=== PATIENT | male | born 1970 | race Caucasian/White ===

== ENCOUNTER 2020-05-08 20:00 | Outpatient (REF) | payer SELFPAY ==
[2020-05-08 19:36] LABS: ALT 27 U/L (16-63); AST 16 U/L (15-37); Alkaline Phosphatase 75 U/L (46-116); Anion Gap 8.5 mmol/L (3-11); BUN 13 mg/dL (7-18); Bilirubin, Total 0.5 mg/dL (0.2-1.0); CO2 26.5 mmol/L (21.0-32.0); CREATININE 0.84 mg/dL (0.70-1.30); Calcium 8.4 mg/dL (8.5-10.1); Calculated LDL 75 mg/dL (<100); Chloride 106 mmol/L (98-107); Cholesterol 114 mg/dL (<200); Glucose 111 mg/dL (74-106); HDL Cholesterol 26 mg/dL (40-60); Sodium 141 mmol/L (136-145); Total Protein 6.7 g/dL (6.4-8.2); Triglyceride 67 mg/dL (<150)
[2020-05-13 11:18] LABS: Testosterone, Total 118 ng/dL (240-950)
== END 2020-05-08 20:20 ==
LOC: NCHCN 20:00
PROVIDERS: PCP Physician Assistant; Visit Provider Physician Assistant
DX: E29.1 Testicular hypofunction (principal); Z00.00 Encounter for general adult medical examination without abnormal findings; E78.5 Hyperlipidemia, unspecified; R03.0 Elevated blood-pressure reading, without diagnosis of hypertension
CPT/HCPCS: 80053; 80061; 84403

== ENCOUNTER 2020-11-12 09:39 | Outpatient (REF) | payer OTHER, SELFPAY ==
[2020-11-15 17:33] LABS: Testosterone, Total 147 ng/dL (240-950)
== END 2020-11-12 09:40 | disposition home or self-care (01) ==
LOC: NCHCN 09:39
PROVIDERS: PCP Physician Assistant; Visit Provider Physician Assistant
DX: E29.1 Testicular hypofunction (principal)
CPT/HCPCS: 84403

== ENCOUNTER 2021-05-07 09:21 | Outpatient (REF) | payer OTHER, SELFPAY ==
[2021-05-07 20:36] LABS: ALT 30 U/L (16-63); AST 15 U/L (15-37); Albumin 4.1 g/dL (3.4-5.0); Alkaline Phosphatase 88 U/L (46-116); Anion Gap 8.7 mmol/L (3-11); BUN 11 mg/dL (7-18); Bilirubin, Total 0.7 mg/dL (0.2-1.0); CO2 26.3 mmol/L (21.0-32.0); CREATININE 0.7 mg/dL (0.70-1.30); Calcium 8.5 mg/dL (8.5-10.1); Calculated LDL 70 mg/dL (<100); Chloride 104 mmol/L (98-107); Cholesterol 106 mg/dL (<200); Glucose 105 mg/dL (74-106); HDL Cholesterol 26 mg/dL (40-60); Potassium 3.9 mmol/L (3.5-5.1); Sodium 139 mmol/L (136-145); Total Protein 6.8 g/dL (6.4-8.2); Triglyceride 54 mg/dL (<150)
[2021-05-09 17:37] LABS: PSA, Screening 0.6 ng/mL (0.0-2.5)
[2021-05-12 11:33] LABS: Testosterone, Total 543 ng/dL (240-950)
== END 2021-05-07 09:22 | disposition home or self-care (01) ==
LOC: NCHCN 09:21
PROVIDERS: PCP Physician Assistant; Visit Provider Physician Assistant
DX: E29.1 Testicular hypofunction (principal); I10 Essential (primary) hypertension; Z12.5 Encounter for screening for malignant neoplasm of prostate; E78.5 Hyperlipidemia, unspecified
CPT/HCPCS: 80053; 80061; 84153; 84403

== ENCOUNTER 2022-04-10 00:01 | Emergency (ER) | payer OTHER, SELFPAY ==
[2022-04-10] VITALS (42 sets, daily range): BP systolic 118–148; BP diastolic 74–85; PULSE 54–73; RESP 14–24; TEMP 37; O2SAT 92–98
--- NOTE | 2022-04-10 | RT.EKG_ITS ---
APPROVED REPORT Exam: Resting ECG Reason for Exam: Chest Pain Patient Location: E HR:66 bpm ECG Measurements Heart Rate 66 AXIS OR 193 P 62 QRSd 101 QRS -7 QT 395 T 46 QTc 414 Conclusion Sinus rhythm...normal P axis, V-rate 60- 99
--- NOTE | 2022-04-10 00:15 | DI.RAD_ITS ---
Exam(s) XR PORTABLE CHEST AP EXAM: XR PORTABLE CHEST AP CLINICAL HISTORY: chest pain TECHNIQUE: 2D digital imaging was performed of the chest. One image was obtained. An AP view was ob tained. COMPARISON: No exams were available for comparison FINDINGS: MEDIASTINUM: Normal. HEART: Normal. PULMONARY VASCULATURE: Normal. LUNGS: Clear. PLEURAL SPACE: No pleural effusion or pneumothorax. BONE:Within normal limits for the patient's age. OTHER FINDINGS:Normal. IMPRESSION: No acute pulmonary findings. DATA REPOSITORY: RADIATION DOSE DELIVERED:
--- NOTE | 2022-04-10 00:19 | ED.GENADUL_ITS ---
Discharge Plan Disposition Patient Disposition: HOME Condition: Stable Discharge Details Clinical Impression: Light-headed Primary Care Provider: Silvano Bolivar ED Provider: Mickey Gallo Home Meds and New Rx's Prescriptions: New lorazepam 1 mg tablet 1 mg PO TID PRN (Reason: anxiety) Qty: 10 0RF Continued atorvastatin [Lipitor] 40 mg Tablet 40 mg PO amlodipine 5 mg Tablet 5 mg pantoprazole [Protonix] 40 mg Tablet,Delayed Release (Dr/Ec) 40 mg PO Discharge Instructions Additional Instructions: your blood work, ekg and xray did not show concerning findings at this time follow up with your primary care provider within 1 week if you feel more ill, have severe worsening pain or difficulty breathing return to the emergency department Medical Decision Making 51yo male with hx of htn, hld, who comes in with cc of waking up feeling lightheaded and pain throughout his body. He states the past week he has had similar symptoms where he wakes up feeling lightheaded but tonight he had pain throughout the body. He denies any fevers, chills, n/v. He states he felt like he was going to lose consciousness during this episode tonight. He arrives with a normal gait, caox4 with clear speech. He states he no longer has pain though still feels lightheaded, is sinus on the monitor with stable vitals. He has clear lungs, no murmurs, soft nontender abdomen. No leg swelling or calf tenderness. He is not having any chest pain or upper back pain. Unclear etiology for his symptoms, he is sinus and still feels lightheaded so unlikely arrythmia. He has no dizziness, normal gait and on neuro exam has CN II-XII that are intact, no focal motor or sensation deficits, nih of 0 and reassuring hints exam so doubt cva. Given the symptoms will obtain troponin, check for anemia and electrolyte abnormalities and reassess. No tearing back pain to suggest dissection and no hypoxia, tachycardia or evidence of dvt on exam so doubt pe. pt stable, labs and xray unremarkable and he feels improved, stable vitals. Will obtain delta troponin pt resting comfortable in bed still in sinus and stable vitals, no symptoms now and delta troponin negative. Pt does voice that he has had some feelins of anxiety when he has these episodes and is wondering if anxiety could be contributing. Discussed can't determine definitely based on the history but it is a possibility. He would like to have something as needed if he does feel anxious, will provide short course of ativan to use as needed. HE has f/u next week with his pcp, return precautions given Differential Diagnosis Differential Diagnosis: nstemi, afib, electrolyte abnormality Imaging Data Radiologic Study: Attestation: I personally reviewed and interpreted this imaging study as follows: Imaging: X-Ray Radiologist's impression: no acute findings Lab Data Lab results reviewed: Yes I reviewed the patient's lab results. ECG Data Attestation: I personally reviewed and interpreted this ECG (s) as follows: Prior ECG tracings: not available for review Interpretation: sinus rhythm, rate of 66, no acute st t wave ischemic findings HPI General Mode of arrival: ambulatory . Date/Time Provider Initiated Documentation: 04/10/22 00:03 . Limitations to Documentation: no limitations . Information obtained by: patient . History of Present Illness 51 year old M presents to the emergency department with the chief complaint of lightheaded, described as moderate, Patient started experiencing this hour(s) (1) and it has been constant. No relieving factors improve symptom(s), No exacerbating factors reported . Patient notes chest pain; denies fever/chills. Patient did receive the following treatments prior to arrival, none Related Data Home Medications Medication Instructions Recorded Confirmed amlodipine 5 mg tablet 5 mg 04/10/22 atorvastatin 40 mg tablet (Lipitor) 40 mg PO 04/10/22 lorazepam 1 mg tablet 1 mg PO TID PRN anxiety #10 tabs 04/10/22 pantoprazole 40 mg tablet,delayed 40 mg PO 04/10/22 release (Protonix) Previous Rx's Medication Instructions Recorded lorazepam 1 mg tablet 1 mg PO TID PRN anxiety #10 tabs 04/10/22 Allergies Allergy/AdvReac Type Severity Reaction Status Date / Time No Known Allergies Allergy Unverified 04/10/22 01:23 General Stated Complaint: GenMedical HAL: 2 Review of Systems All systems reviewed & are unremarkable except as noted in HPI and below Constitutional Constitutional: Denies chills, Denies fever(s) and Denies weakness Cardiovascular Cardiovascular: Denies dyspnea Respiratory Respiratory: Denies cough and Denies dyspnea Gastrointestinal Gastrointestinal: Denies abdominal pain, Denies nausea and Denies vomiting Integumentary/Breasts Skin/Breast: Denies rash Neurologic Neurologic: Denies weakness Allergic/Immunologic Allergic/Immunologic: Denies urticaria PFSH All Active Problems (Updated 04/10/22 @ 01:53 by Mickey Gallo MD) Light-headed (Acute) Social History Smoking/Tobacco Use Status: Never Smoking risk assessment performed?: Yes Alcohol Intake: never Drug use: Never Do you feel safe at home: Yes Do you feel safe in your relationship?: Yes Exam Const General: no acute distress Orientation: alert HENMT Head: normal to inspection Ears: external ears normal General nose exam: external nose normal Mouth: moist mucous membranes Eyes General: appearance normal, both eyes and all related structures Neck Neck: normal visual inspection Resp Effort & Inspection: normal respiratory effort and able to speak in complete sentences Cardio Rate: regular rate GI Palpation: soft and nontender Skin General skin exam: no rashes or lesions noted Neuro General: patient alert and patient oriented x3 Extrem General: normal to inspection Psych Mental Status: mental status grossly normal Course Vital Signs Vital signs: Vital Signs Pulse Oximetry 97 04/10/22 00:05 Temperature 37.0 C 04/10/22 00:07 Temperature Source Tympanic 04/10/22 00:07 Pulse 73 04/10/22 00:07 Pulse 71 04/10/22 00:10 Respiratory Rate 22 04/10/22 00:10 Respiratory Effort 04/10/22 00:13 Respiratory Depth Normal 04/10/22 00:13 Respiratory Pattern Normal 04/10/22 00:13 Blood Pressure 148/81 H 04/10/22 00:07 Blood Pressure Mean 98 04/10/22 00:07 Blood Pressure Position Supine 04/10/22 00:07 Pulse Oximetry 96 04/10/22 00:10 Oxygen Delivery Method Room Air 04/10/22 00:07 Oxygen Flow Rate 0 04/10/22 00:07 Pain Level 0 04/10/22 00:07
[2022-04-10] MEDS: Normal Saline 1,000 ML 1000 ML IV (00:22)
[2022-04-10 00:35] LABS: Abs Immature Grans 0.02 10^3/uL (0.0-0.06); Absolute Basophil Count 0.07 10^3/uL (0.0-0.2); Absolute Eosinophil Count 0.22 10^3/uL (0.0-0.7); Absolute Lymphocyte Count 2.92 10^3/uL (1.2-3.4); Absolute Monocyte Count 0.91 10^3/uL (0.1-0.8); Absolute Neutrophil Count 6.24 10^3/uL (1.2-6.7); Basophils % 0.7; Eosinophils % 2.1; HCT 45.5 % (40.0-50.0); HGB 15.9 g/dL (13.5-17.5); Immature Grans % 0.2; Lymphocytes % 28.1; MCH 29.7 pg (27.0-33.0); MCHC 34.9 % (32.0-36.0); MCV 85 fL (80-95); MPV 8.8 fL (8.0-11.0); Monocytes % 8.8; Neutrophils % 60.1; Platelet Count 262 10^3/uL (130-400); RBC 5.36 10^6/uL (4.36-5.78); RDW 12.4 % (11.8-14.1); RDW-SD 38.1 fL; WBC 10.38 10^3/uL (4.4-10.8)
[2022-04-10 00:42] LABS: ALT 32 U/L (16-63); AST 16 U/L (15-37); Albumin 4.1 g/dL (3.4-5.0); Alkaline Phosphatase 79 U/L (46-116); Anion Gap 4.9 mmol/L (3-11); BUN 16 mg/dL (7-18); Bilirubin, Total 0.6 mg/dL (0.2-1.0); CO2 28.1 mmol/L (21.0-32.0); CREATININE 0.9 mg/dL (0.70-1.30); Calcium 8.7 mg/dL (8.5-10.1); Chloride 106 mmol/L (98-107); Estimated GFR 104.05 (mL/min/1.73m2); Glucose 108 mg/dL (74-106); Magnesium 1.9 mg/dL (1.8-2.4); Potassium 3.7 mmol/L (3.5-5.1); Sodium 139 mmol/L (136-145); Total Protein 7.1 g/dL (6.4-8.2); Troponin I < 50 ng/L (<or=60)
--- NOTE | 2022-04-10 00:57 | DI.VRAD_ITS ---
PROCEDURE INFORMATION: Exam: XR Chest Exam date and time: 04/10/2022 12:20 AM Age: 51 years old Clinical indication: Other: Chest pain TECHNIQUE: Imaging protocol: Radiologic exam of the chest. Views: 1 view. COMPARISON: No relevant prior studies available. FINDINGS: Lungs: Mild chronic interstitial prominence. No consolidation. Pleural spaces: No pleural effusion. No pneumothorax. Heart/Mediastinum: Mildly tortuous aorta. No cardiomegaly. Bones/joints: Unremarkable. IMPRESSION: No acute findings. Dictated and Authenticated by: Nic Tate MD. Ordering:LORIN Arevalo MD
[2022-04-10] MEDS: Normal Saline Flush 10 ML SYR (03:12)
[2022-04-10 03:30] LABS: Troponin I < 50 ng/L (<or=60)
== END 2022-04-10 16:35 | disposition home or self-care (01) ==
LOC: ER 04:34
PROVIDERS: Emergency Provider Emergency Medicine; PCP Physician Assistant
DX: R42 Dizziness and giddiness (principal)
CPT/HCPCS: 80053; 93005; 96360; 99284; 71045; 83735; 84484; 85025; 93010

== ENCOUNTER 2022-05-04 18:39 | Outpatient (REF) | payer OTHER, SELFPAY ==
[2022-05-04 20:13] LABS: ALT 35 U/L (16-63); AST 18 U/L (15-37); Albumin 4.3 g/dL (3.4-5.0); Alkaline Phosphatase 93 U/L (46-116); BUN 12 mg/dL (7-18); Bilirubin, Total 0.6 mg/dL (0.2-1.0); CREATININE 0.9 mg/dL (0.70-1.30); Calcium 8.4 mg/dL (8.5-10.1); Calculated LDL 73 mg/dL (<100); Chloride 103 mmol/L (98-107); Cholesterol 110 mg/dL (<200); Estimated GFR 104.05 (mL/min/1.73m2); Glucose 94 mg/dL (74-106); HDL Cholesterol 29 mg/dL (40-60); Sodium 139 mmol/L (136-145); Total Protein 7.2 g/dL (6.4-8.2); Triglyceride 43 mg/dL (<150)
[2022-05-06 11:10] LABS: PSA, Screening 0.6 ng/mL (<=3.5)
[2022-05-09 16:45] LABS: Testosterone, Total 660 ng/dL (240-950)
== END 2022-05-04 18:40 | disposition home or self-care (01) ==
LOC: NCHCN 18:39
PROVIDERS: PCP Physician Assistant; Visit Provider Physician Assistant
DX: E29.1 Testicular hypofunction (principal); Z12.5 Encounter for screening for malignant neoplasm of prostate; I10 Essential (primary) hypertension; E78.5 Hyperlipidemia, unspecified
CPT/HCPCS: 80053; 80061; 84153; 84403

== ENCOUNTER 2023-02-08 08:05 | Day surgery (SDC) | payer BC, SELFPAY ==
--- NOTE | 2023-02-07 09:45 | W.PM.DSUDISC ---
Date of service: 02/08/23 Time of Service: 10:05 Discharge Plan Disposition Patient Disposition: Home Condition: Good Discharge Details Reason For Visit: Screening colonoscopy Attending Provider: Cedric Arriaza Primary Care Provider: Silvano Bolivar Home Meds and New Rx's Prescriptions: Continued sertraline 150 mg capsule 150 mg PO DAILY testosterone cypionate [Depo-Testosterone] 200 mg/mL oil 200 mg IM Q2W clonazepam 0.5 mg tablet 0.5 mg PO DAILY PRN tadalafil [Cialis] 20 mg tablet 20 mg PO DAILY PRN Rx Instructions: administer approximately 30min before sexual activity; do not use more than 1 dose per 24hrs atorvastatin [Lipitor] 40 mg Tablet 40 mg PO HS amlodipine 5 mg Tablet 5 mg PO DAILY Discontinued polyethylene glycol 3350 17 gram/dose powder 238 g PO ONCE Qty: 238 0RF Rx Instructions: take per colonoscopy instructions bisacodyl [Dulcolax (bisacodyl)] 5 mg tablet,delayed release (DR/EC) 5 mg PO ONCE Qty: 4 0RF Rx Instructions: take per colonoscopy instructions Discharge Instructions Instructions: Colorectal Polyps (GEN) Additional Instructions: Neal, we were able to complete your colonoscopy without any problems today. I did find 1 single polyp. It was moderate in size. There were no features that were worrisome to the naked eye. I removed it completely. I will be in touch when I have the pathology report describing the type of polyp, with my final recommendations. 1. If tolerated, consume a soft, low fiber diet for 1-2 days. 2[address] Do not drive, drink alcohol, operate machinery, make critical decisions, or do activities that require coordination or balance for 24 hours. 3. Because air was put into your colon during the procedure, expelling air from your rectum (passing gas or farting) is normal. 4. You may not have a bowel movement for 1-3 days because of the colonoscopy prep. This is normal. 5. Go directly to the emergency room if you notice any of the following: Develop chills (warm to touch), or if you have a thermometer and your temperature is above 101 Difficulty breathing or difficultly swallowing Persistent vomiting Severe abdominal pain, other than gas cramps Severe chest pain Black, tarry stools Any bleeding ? exceeding one tablespoon 6. Call your physician if the site where your intravenous was started becomes red, swollen, painful, and warm to touch. 7. Your physician has reviewed your pre-procedure medications. Please continue to take those medications as previously ordered. You will be given specific information/education regarding any changes to your medications before leaving. Stand Alone Forms: Anesthesia Discharge InstMatty Pardo (DSU) Activity:: Activity as Tolerated Diet:: As Tolerated Discharge Orders Discharge Orders: Discharge Order (Routine); Ordered 02/07/23 Ordered By: Cedric Arriaza DS: Diagnosis Discharge Diagnosis (1) Screen for colon cancer: Status: Acute Asessment and Plan: I will follow-up on polypectomy results
--- NOTE | 2023-02-07 09:46 | W.COLOREPORT ---
Date of service: 02/08/23 Time of Service: 10:07 Colonoscopy Report Date of procedure: 02/08/23 Pre-op diagnosis general: Screening colonoscopy Post-op diagnosis procedure note: other (Colon polyp) Procedure: Colonoscopy with polypectomy Surgeon: Cedric Arriaza Anesthesia Type: General:No Airway Estimated blood loss (mL): 5 Pathology: other (0.5 cm polyp at 90 cm from the anus) Complications: None Disposition: same day Indications: Neal is a 52-year-old male here for his for screening colonoscopy Prep: Miralax/Dulcolax Procedure Start Time: 09:37 Procedure End Time: 09:51 Retraction Time: 8 Findings: 0.5 cm colon polyp at 90 cm from the anus Procedure Description: After the induction of monitored anesthetic care, and with the patient in left lateral decubitus position, I began by performing an external anorectal exam.? Perineum and skin were normal, as was the anal verge.? There was no evidence of external hemorrhoids.? Next, I performed a digital rectal exam.? I did not appreciate any abnormal findings.? Next, I advanced a colonoscope into the rectal vault.? I performed retroflexion.? This was normal.? Using insufflation, I then advanced the colonoscope beyond the rectal folds and into the sigmoid colon before advancing towards the cecum.? The quality of the prep was excellent.? The scope was noted to be in the cecum by identification of the ileocecal valve and appendiceal orifice.? I then began withdrawing the colonoscope using repeated irrigation as necessary for full evaluation of the colonic mucosa. Around 90 cm from the anal verge I identified a 0.5 cm polyp. ?It appeared sessile, but slightly pedunculated in character. ?I was able to remove this with a cold forcep polypectomy. ?I examined the site, and there was minimal bleeding. ?Once this was completed, I continued to withdraw the scope and examine the remainder of the colonic mucosa.?Once the scope was withdrawn to the level of the rectum, great care was taken to examine portions of the rectal folds.? Finally, the scope was withdrawn and the patient was brought to the same-day surgery recovery unit as the anesthetic wore off. ?The findings and instructions were shared with the patient prior to discharge.
--- NOTE | 2023-02-08 08:47 | ANES.PREOP_ITS ---
General Info Date of Service Date Performed: 02/08/23 Height: 6 ft 2 in Weight: 137.5 kg Body Mass Index (BMI): 38.9 Surgical Procedure: Operation Date: 02/08/23 09:50 Proposed Procedure Side Surgeon charles Arriaza MD Meds Allergies and Home Medications Allergies Allergy/AdvReac Type Severity Reaction Status Date / Time Penicillins Allergy Unknown Verified 02/05/23 11:06 Sulfa (Sulfonamide Allergy Unknown Verified 02/08/23 08:39 Antibiotics) Home Medication Medication Instructions Recorded amlodipine 5 mg tablet 5 mg PO DAILY 04/10/22 atorvastatin 40 mg tablet (Lipitor) 40 mg PO HS 04/10/22 clonazepam 0.5 mg tablet 0.5 mg PO DAILY PRN 01/28/23 sertraline 150 mg capsule 150 mg PO DAILY 01/28/23 tadalafil 20 mg tablet (Cialis) 20 mg PO DAILY PRN 01/28/23 testosterone cypionate 200 mg/mL 200 mg IM Q2W 01/28/23 intramuscular oil (Depo-Testosterone) Current Visit Medications: Current Medications Generic Name Dose Route Start Last Admin Trade Name Markq PRN Reason Stop Dose Admin Hyoscyamine Sulfate 0.125 mg 02/07/23 09:46 Hyoscyamine 0.125 Mg Sl/Oral/Chew SL 03/09/23 09:45 DIRECTED PRN Ringer's Solution 1,000 mls @ 80 mls/hr 02/08/23 06:00 IV 03/07/23 23:59 INFUSION [facility] IV Miscellaneous Supplies 1 each 02/08/23 06:00 Iv Access IV 03/07/23 23:59 DIRECTED [facility] Ondansetron HCl 4 mg 02/07/23 09:46 Ondansetron 4 Mg/2 Ml Vial IVP 03/09/23 09:45 Q4H PRN PRN Nausea / Vomiting Sodium Chloride 0 ml 02/08/23 06:00 Normal Saline Flush 10 Ml Syr IV 03/07/23 23:59 PRN PRN Sodium Chloride 0 ml 02/08/23 06:00 Normal Saline 10 Ml Vial IJ 03/07/23 23:59 DIRECTED PRN Sterile Water 0 ml 02/08/23 06:00 Water,Injection,Sterile 10 Ml Vial IJ 03/07/23 23:59 DIRECTED PRN PFSH Active Problems Active Problems: Problem Status Onset Code Screen for colon cancer Z12.11 Medical History Medical History Anxiety High cholesterol History of anal fissures and repair History of herniated intervertebral disc L5-w/ injections HTN (hypertension) Low testosterone in male Surgical History Surgical History Hx of appendectomy Hx of tonsillectomy S/P injection of intervertebral space for herniated disc Tobacco Smoking/Tobacco Use Status: Former Tobacco Use Alcohol Alcohol Intake: former Substance Use Substance use: Never Substance use type: does not use Vital Signs and Lab Results Lab Results Blood Type / Crossmatch: No Data to Display Complete Blood Count: No Data to Display Complete Metabolic Panel: No Data to Display Liver Function Panel: No Data to Display Coagulation Panel: No Data to Display Cardiac Panel: No Data to Display Arterial Blood Gas: No Data to Display Venous Blood Gas: No Data to Display Pancreas Panel: No Data to Display Thyroid Panel: No Data to Display Infectious Disease: No Data to Display Blood Cultures: No Data to Display Toxicology Panel: No Data to Display Anesthesia Assessment and Plan Anesthesia History Personal History: No History of Anesthesia Complications Family History: No Family History of Anesthesia Complications Exercise Tolerance Exercise Tolerance: Metabolic Equivalents>4 Pertinent Negatives Pertinent Negatives: No Symptoms of GERD, No Major Cardiovascular Symptoms or Complaints and No Major Pulmonary Symptoms or Complaints Cardiac & Pulmonary Exam Cardiac Exam: Normal S1/S2 Heart Sounds Pulmonary Exam: Clear Bilateral Breath Sounds Implantable Cardiac Device Does patient have a Pacemaker or an ICD?: No Airway Exam Known Difficult Airway: No Mallampati Class: 2 Mouth Opening: Normal (> 3cm) Thyromental Distance: Greater than 3 cm Neck Range of Motion: Full ROM Neck Circumference: Normal Teeth Condition: Normal Dentition ASA Classification ASA Score: ASA 2 Emergency Case?: No NPO Status NPO Status: NPO Clears >2 hours, Solids >8 hours Anesthesia Plan Resuscitation Status: Full Code Anesthesia Technique: General Anesthesia Airway Planned: Natural Airway Monitors Used: Standard Monitors
[2023-02-08 08:49] VITALS: BMI 38.9
[2023-02-08] MEDS: Lactated Ringers 1,000 ML 80 ML IV (08:50)
--- NOTE | 2023-02-08 09:46 | BOWEL_PTH ---
PATIENT: Neal Landis LOC: [facility] U#:[id number] AGE/SX: 52/M ROOM: RE02/08/[address]: Cedric Arriaza MD : 1970 BED: DIS: 02/08/2023 SPEC #: [id number] RECD: 02/08/23 12:40 STATUS: BITA REQ #: [id number] MOMO: 02/08/23 09:[address]: Cedric Arriaza DEPT: Surgical Specimen RECD BY: Ana Banks ENTERED: 02/08/23 12:41 SP TYPE: Bowel OTHR DR: Silvano Bolivar Tissues: 1 - BIOPSY BOWEL Procedures: GROSS AND MICRO LEVEL 4 Comments: [id number]
[2023-02-08 09:57] VITALS: BP 107/74; PULSE 59; RESP 16; TEMP 36.3; O2SAT 97
--- NOTE | 2023-02-08 10:23 | W.ANESPOSTOP ---
Postoperative Evaluation Date, Time and Location Date Performed: 02/08/23 Time Performed: 10:04 Patient Location: Day Surgery Unit Vital Signs Most Recent Imported Vital Signs: Most Recent Vital Signs Temp Pulse Resp BP Pulse Ox 36.3 C L 59 L 16 107/74 97 02/08/23 09:57 02/08/23 09:57 02/08/23 09:57 02/08/23 09:57 02/08/23 09:57 Pain Score Most Recent Pain Score: Most Recent Pain Score Pain Level 0 02/08/23 09:57 Assessment Mental Status: Awake (Alert & Oriented to Patient Baseline) Airway and Respiratory Function: Patent airway with normal (patient baseline) respiratory exam Cardiovascular Function: Hemodynamically Stable Hydration Status: Adequately Hydrated Nausea & Vomiting: No Nausea or Vomiting Pain: Pt. Denies Any Pain Peripheral Nerve Block: Patient did not receive a nerve block
[2023-02-08 10:24] VITALS: BP 116/80; PULSE 58; RESP 16; TEMP 36.2; O2SAT 98
== END 2023-02-08 10:32 | disposition home or self-care (01) ==
LOC: SUR 08:06
PROVIDERS: PCP Physician Assistant; Visit Provider Surgery
PROC: 0DJD8ZZ Inspection of Lower Intestinal Tract, Via Natural or Artificial Opening Endoscopic (ICD-10-PCS; CPT 45378; principal; 2023-02-08 09:45)
DX: Z12.11 Encounter for screening for malignant neoplasm of colon (principal); D12.3 Benign neoplasm of transverse colon; K21.9 Gastro-esophageal reflux disease without esophagitis; I10 Essential (primary) hypertension; E78.5 Hyperlipidemia, unspecified; F41.9 Anxiety disorder, unspecified
CPT/HCPCS: 45380; 88305

== ENCOUNTER 2023-02-12 08:55 | Outpatient (REF) | payer BC, SELFPAY ==
--- NOTE | 2023-02-12 08:15 | SKI_PTH ---
PATIENT: Neal Landis LOC: [facility] U#:[id number] AGE/SX: 52/M ROOM: RE02/12/[address]: Silvano Bolivar : 1970 BED: DIS: 02/12/2023 SPEC #: [id number] RECD: 02/12/23 13:23 STATUS: BITA TAYLOR #: [id number] MOMO: 02/12/23 08:[address]: Silvano Bolivar DEPT: Surgical Specimen RECD BY: Ana Banks Tissues: 1 - SKIN BIOPSY(SHAVE/PUNCH) Procedures: SKIN LEVEL 4 Comments: [id number]
== END 2023-02-12 08:56 | disposition home or self-care (01) ==
LOC: LBN 08:55
PROVIDERS: PCP Physician Assistant; Visit Provider Physician Assistant
DX: K63.5 Polyp of colon (principal)
CPT/HCPCS: 88305

== ENCOUNTER → 2023-04-09 00:52 | Outpatient (CLI) | payer BC, SELFPAY ==
--- NOTE | 2023-04-09 08:20 | DI.RAD_ITS ---
Exam(s) XR KNEE RT 3V AP,LAT,NABILA EXAM: XR KNEE RT 3V AP,LAT,NABILA CLINICAL HISTORY: RT KNEE PAIN, M25.561. TECHNIQUE: 2D digital imaging was performed. Three views. COMPARISON: No exams were available for comparison FINDINGS: BONES: No acute fracture is present. No bony destructive lesion is seen. Mild spurring at the tibial spines and articular aspect of the patella. Mild spurring at femoral intercondylar notch. JOINTS: The knee is normally aligned. A small joint effusion is seen. Joint spaces are maintained. SOFT TISSUE: Normal. IMPRESSION: Mild degenerative changes. DATA REPOSITORY: RADIATION DOSE DELIVERED:
== END ==
PROVIDERS: PCP Physician Assistant; Visit Provider Physician Assistant
DX: M17.11 Unilateral primary osteoarthritis, right knee (principal)
CPT/HCPCS: 73562

== ENCOUNTER 2023-05-13 13:30 | Outpatient (REF) | payer BC, MEDICAID, SELFPAY ==
[2023-05-13 17:36] LABS: ALT 55 U/L (16-63); AST 23 U/L (15-37); Albumin 4.2 g/dL (3.4-5.0); Alkaline Phosphatase 84 U/L (46-116); Anion Gap 9.1 mmol/L (3-11); BUN 14 mg/dL (7-18); Bilirubin, Total 0.8 mg/dL (0.2-1.0); CO2 26.9 mmol/L (21.0-32.0); CREATININE 0.7 mg/dL (0.70-1.30); Calcium 8.6 mg/dL (8.5-10.1); Calculated LDL 83 mg/dL (<100); Chloride 104 mmol/L (98-107); Cholesterol 130 mg/dL (<200); Estimated GFR 111.56 (mL/min/1.73m2); Glucose 94 mg/dL (74-106); HDL Cholesterol 30 mg/dL (40-60); Potassium 3.7 mmol/L (3.5-5.1); Sodium 140 mmol/L (136-145); Total Protein 7.1 g/dL (6.4-8.2); Triglyceride 88 mg/dL (<150)
[2023-05-14 21:26] LABS: PSA, Screening 0.7 ng/mL (<=3.5)
[2023-05-19 02:56] LABS: Testosterone, Total 468 ng/dL (240-950)
== END 2023-05-13 13:31 | disposition home or self-care (01) ==
LOC: NCHCN 13:30
PROVIDERS: PCP Physician Assistant; Visit Provider Physician Assistant
DX: I10 Essential (primary) hypertension (principal); E29.1 Testicular hypofunction; Z12.5 Encounter for screening for malignant neoplasm of prostate; E78.5 Hyperlipidemia, unspecified
CPT/HCPCS: 80053; 80061; 84153; 84403

== ENCOUNTER 2023-06-03 16:17 | Outpatient (REF) | payer BC, MEDICAID, SELFPAY ==
--- NOTE | 2023-06-03 12:30 | SKI_PTH ---
PATIENT: Neal Landis LOC: [facility] U#:[id number] AGE/SX: 52/M ROOM: RE06/03/[address]: Silvano Bolivar : 1970 BED: DIS: 06/03/2023 SPEC #: [id number] RECD: 06/03/23 17:17 STATUS: BITA REBenito #: [id number] MOMO: 06/03/23 12:[address]: Silvano Bolivar DEPT: Surgical Specimen RECD BY: Ana Banks Tissues: 1 - SKIN BIOPSY(SHAVE/PUNCH) Procedures: SKIN LEVEL 4 Comments: [id number]
== END 2023-06-03 16:18 | disposition home or self-care (01) ==
LOC: NCHCN 16:17
PROVIDERS: PCP Physician Assistant; Visit Provider Physician Assistant
DX: D22.5 Melanocytic nevi of trunk (principal)
CPT/HCPCS: 88305

== ENCOUNTER 2023-11-03 21:02 | Outpatient (REF) | payer MEDICAID, SELFPAY | END 2023-11-03 21:03 | disposition home or self-care (01) | LOC: LBN 21:02 | PROVIDERS: PCP Physician Assistant; Visit Provider Physician Assistant Medical | DX: J02.9 Acute pharyngitis, unspecified (principal) | CPT/HCPCS: 87070 ==

== ENCOUNTER 2023-11-06 15:14 | Outpatient (REF) | payer MEDICAID, SELFPAY | END 2023-11-06 15:15 | disposition home or self-care (01) | LOC: LBN 15:14 | PROVIDERS: PCP Physician Assistant; Visit Provider Physician Assistant Medical | DX: H10.32 Unspecified acute conjunctivitis, left eye (principal) | CPT/HCPCS: 87070 ==

== ENCOUNTER 2024-04-19 21:08 | Emergency (ER) | payer MEDICAID, SELFPAY ==
[2024-04-19 21:13] VITALS: BP 175/100; PULSE 98; RESP 20; TEMP 37.2; O2SAT 96
--- NOTE | 2024-04-19 21:15 | DI.RAD_ITS ---
Exam(s) XR CHEST 2V PA LATERAL EXAM: XR CHEST 2V PA LATERAL CLINICAL HISTORY: Cough TECHNIQUE: 2D digital imaging was performed of the chest. Two images were obtained. PA and lateral views were obtained. COMPARISON: CR,XR XR PORTABLE CHEST AP from 04/10/2022 FINDINGS: MEDIASTINUM: Normal. HEART: Normal. PULMONARY VASCULATURE: Normal. LUNGS: Atelectatic changes are seen in the perihilar region on the left. No focal consolidating infi ltrates are seen. This may represent atelectasis. PLEURAL SPACE: No pleural effusion or pneumothorax. BONE:Within normal limits for the patient's age. OTHER FINDINGS:Normal. IMPRESSION: Atelectatic changes seen particularly in the left lung. No focal consolidating infiltrates. DATA REPOSITORY: RADIATION DOSE DELIVERED:
--- NOTE | 2024-04-19 21:29 | ED.GENADUL_ITS ---
Discharge Plan Disposition Patient Disposition: Home Condition: Stable Discharge Details Clinical Impression: Community acquired pneumonia Primary Care Provider: Silvano Bolivar ED Provider: Migdalia Ramirez Home Meds and New Rx's Prescriptions: New doxycycline hyclate 100 mg capsule 100 mg PO BID 5 Days Qty: 10 0RF No Action sertraline 150 mg capsule 150 mg PO DAILY testosterone cypionate [Depo-Testosterone] 200 mg/mL oil 200 mg IM Q2W clonazepam 0.5 mg tablet 0.5 mg PO DAILY PRN tadalafil [Cialis] 20 mg tablet 20 mg PO DAILY PRN Rx Instructions: administer approximately 30min before sexual activity; do not use more than 1 dose per 24hrs atorvastatin [Lipitor] 40 mg Tablet 40 mg PO HS amlodipine 5 mg Tablet 5 mg PO DAILY Discharge Instructions Instructions: Community-Acquired Pneumonia, Adult (DC) Additional Instructions: You were seen in the emergency department today for evaluation of bodyaches, general malaise, and cough. You were found to have pneumonia, and were started on antibiotics. You also need to use akuu-hjc-[id number] medications such as Tylen ol or ibuprofen to manage your body aches and fever. Please maintain good hydration and nutrition, and follow-up with your primary care provider in the next few days to discuss this visit and any symptoms that change, worsen, or persist. You can return to the emergency department if you develop shortness of breath, chest pain, fever that does not improve with Tylenol and ibuprofen, or any other symptoms that cause you concern. Thank you for allowing us to be part of your care. HPI General Mode of arrival: ambulatory . Date/Time Provider Initiated Documentation: 04/19/24 21:10 . Limitations to Documentation: no limitations . Information obtained by: patient and old records reviewed . HPI Narrative: HPI: This is a 53-year-old male patient with a past medical history significant for hypertension, hyperlipidemia, and anxiety. He is presenting for evaluation of 6 days of general malaise, subjective fevers, and cough. He reports that at the beginning he was having severe body aches, his cough is productive of nonbloody sputum. He states that he feels like his cough has transitioned to dry, states that he has not tried any sbzf-ozz-gfilztu medications or anti pyretics in the home environment. States that he has not been able to eat as much is typical and feels quite nauseated, states that he has been able to maintain his hydration. Reports no dysuria, diarrhea, or abdominal pain. He has chest pain only when he coughs, denies shortness of breath. States that he got his COVID and influenza vaccines this year, states that he went to an urgent care yesterday, where he had a negative COVID test and was discharged. Exam: Gen: Awake and alert, in no apparent distress HEENT: Non-icteric sclera, conjunctiva noninjected. Posterior pharynx without erythema, exudate Neck: Supple, full range of motion without meningismus Lungs: No apparent respiratory distress, normal respiratory effort. Lung sounds clear and equal bilaterally without wheezes, rhonchi, rales CV: Appears well perfused, heart with regular rate and rhythm, strong distal pulses Abdomen: Non-distended, soft, nontender MSK: Moves 4 extremities without apparent limitation in ROM. No peripheral edema Skin: Visualized skin without rashes, cyanosis. Neuro: Normal Gait, no obvious focal deficits or facial asymmetry. Speaks in full, clear sentences. Psych: Appropriate for situation. MDM: This is a 53-year-old male patient presenting for evaluation of general malaise, cough. My differential includes but is not limited to viral upper respiratory infection, pneumonia, bronchitis. The patient is reassuringly afebrile now, despite not having taken antipyretics. I have a lower concern for bacteremia and sepsis given his hemodynamic stability. Certainly considered intra-abdominal abnormalities including gastroenteritis, physical examination is not consistent with pancreatitis, cholecystitis, appendicitis, diverticulitis, UTI. He has been eating and drinking and appears well-hydrated and I have a lower concern for metabolic and electrolyte derangement, dehydration or kidney injury. I will provide the patient with a dose of ibuprofen and Zofran for symptomatic management, push p.o. fluids, and obtain a viral swab and chest x-ray. ED Course: Fluvid negative, I independently interpreted the patient's chest x- ray, which is concerning for community-acquired pneumonia. For this reason I started the patient on antibiotics, given his penicillin allergy, after shared decision-making conversation we decided to proceed with doxycycline, twice daily for the next 5 days. I also encouraged the use of hfmr-tna-wvnzous medications for symptomatic management, and good hydration and nutrition. I provided you with a short course of Zofran to ensure that he is able to maintain his hydration. After medications the patient had improvement in his body aches and malaise, tolerated p.o. without nausea or vomiting. At this time, the patient has had a full medical evaluation and is safe for discharge to home. They are hemodynamically stable, ambulatory, and tolerating PO. They are understanding of the follow-up plan and return precautions. They left our facility without incident. Migdalia Ramirez MD Related Data Home Medications ?Medication ?Instructions ?Recorded ?Confirmed amlodipine 5 mg tablet 5 mg PO DAILY 04/10/22 04/19/24 atorvastatin 40 mg tablet (Lipitor) 40 mg PO HS 04/10/22 04/19/24 clonazepam 0.5 mg tablet 0.5 mg PO DAILY PRN 01/28/23 04/19/24 sertraline 150 mg capsule 150 mg PO DAILY 01/28/23 04/19/24 tadalafil 20 mg tablet (Cialis) 20 mg PO DAILY PRN 01/28/23 04/19/24 testosterone cypionate 200 mg/mL 200 mg IM Q2W 01/28/23 04/19/24 intramuscular oil (Depo-Testosterone) doxycycline hyclate 100 mg capsule 100 mg PO BID 5 days #10 caps 04/19/24 Previous Rx's ?Medication ?Instructions ?Recorded doxycycline hyclate 100 mg capsule 100 mg PO BID 5 days #10 caps 04/19/24 Allergies Allergy/AdvReac Type Severity Reaction Status Date / Time Penicillins Allergy Unknown Unknown Verified 04/19/24 21:18 Sulfa (Sulfonamide Allergy Unknown Unknown Verified 04/19/24 21:18 Antibiotics) General Stated Complaint: RespSymp HAL: 4 Course Vital Signs Vital signs: Vital Signs Temperature 37.2 C 04/19/24 21:13 Pulse 98 H 04/19/24 21:13 Respiratory Rate 20 04/19/24 21:13 Blood Pressure 175/100 H 04/19/24 21:13 Pulse Oximetry 96 04/19/24 21:13 Temperature 37.2 C 04/19/24 21:13 Temperature Source Oral 04/19/24 21:13 Pulse 98 H 04/19/24 21:13 Respiratory Rate 20 04/19/24 21:13 Respiratory Effort Normal, Non-Labored 04/19/24 21:19 Respiratory Depth Normal 04/19/24 21:19 Blood Pressure 175/100 H 04/19/24 21:13 Blood Pressure Position Sitting 04/19/24 21:13 Pulse Oximetry 96 04/19/24 21:13 Oxygen Delivery Method Room Air 04/19/24 21:13 Oxygen Flow Rate 0 04/19/24 21:13 Pain Level 0 04/19/24 21:13 Medical Decision Making Quality:SDOH Health Related Social Needs: No Data to Display PFSH All Active Problems (Updated 04/19/24 @ 22:20 by Migdalia Ramirez MD) Community acquired pneumonia (Acute) Tubular adenoma (Acute) Screen for colon cancer (Acute) Medical History (Updated 04/19/24 @ 22:20 by Migdalia Ramirez MD) History of herniated intervertebral disc L5-w/ injections History of anal fissures and repair High cholesterol HTN (hypertension) Low testosterone in male Anxiety Surgical History (Updated 02/08/23 @ 14:52 by Mara Camacho) History of colonoscopy (~01/2023) S/P injection of intervertebral space for herniated disc Hx of tonsillectomy Hx of appendectomy Social History Smoking/Tobacco Use Status: Former Tobacco Use Quit Date: 06/14/97 Smoking risk assessment performed?: Yes Alcohol Intake: former Drug use: Never Substance use type: does not use Housing: house Do you feel safe at home: Yes Do you feel safe in your relationship?: Yes
[2024-04-19 21:30] VITALS: BP 156/83
[2024-04-19] MEDS: Ondansetron O.D.T. 4 MG TABEF PO (21:33)
[2024-04-19] MEDS: Ibuprofen 600 MG TAB PO (21:34)
[2024-04-19 22:08] LABS: COVID-19 PCR Negative (Negative); Influenza A PCR Negative (Negative); Influenza B PCR Negative (Negative); RSV PCR Negative (Negative)
[2024-04-19 22:16] VITALS: BP 157/85; PULSE 92; O2SAT 94
[2024-04-19 22:16] LABS: Source Nasopharynx
[2024-04-19 22:17] VITALS: O2SAT 94
[2024-04-19 22:20] VITALS: O2SAT 94
[2024-04-19] MEDS: Doxycycline Hyclate 100 MG CAP PO (22:25)
[2024-04-19] MEDS: Ondansetron O.D.T. 4 MG TABEF, 3 TABS/BTL PO (22:25)
[2024-04-19] MEDS: Doxycycline Hyclate 100 MG, 2 CAPS/BTL PO (22:25)
--- NOTE | 2024-04-19 23:09 | DI.VRAD_ITS ---
PROCEDURE INFORMATION: Exam: XR Chest Exam date and time: 04/19/2024 10:13 PM Age: 53 years old Clinical indication: Cough TECHNIQUE: Imaging protocol: Radiologic exam of the chest. Views: 2 views. COMPARISON: CR XR PORTABLE CHEST AP 04/10/2022 12:20 AM FINDINGS: Lungs: Perihilar and bibasilar atelectasis, puqz-trjnroe-narn-right. Pleural spaces: Unremarkable. No pleural effusion. No pneumothorax. Heart/Mediastinum: Unremarkable. No cardiomegaly. Bones/joints: No acute osseous abnormality. Soft tissues: Soft tissues are unremarkable as visualized. IMPRESSION: Perihilar and bibasilar atelectasis, [id number]-[id number]-right. Dictated and Authenticated by: Barb Zeng MD. Ordering:RICH Cummings MD
== END 2024-04-19 22:30 | disposition home or self-care (01) ==
LOC: ER 22:33
PROVIDERS: Emergency Provider Emergency Medicine; PCP Physician Assistant
DX: J18.9 Pneumonia, unspecified organism (principal); I10 Essential (primary) hypertension; E78.5 Hyperlipidemia, unspecified; Z87.891 Personal history of nicotine dependence
CPT/HCPCS: 87637; 99283; 71046

== ENCOUNTER 2024-09-04 15:02 | Outpatient (REF) | payer MEDICAID, SELFPAY ==
[2024-09-04 16:21] LABS: ALT 33 U/L (16-63); AST 17 U/L (15-37); Alkaline Phosphatase 86 U/L (46-116); Anion Gap 6.4 mmol/L (3-11); BUN 11 mg/dL (7-18); Bilirubin, Total 0.5 mg/dL (0.2-1.0); CO2 28.6 mmol/L (21.0-32.0); CREATININE 0.7 mg/dL (0.70-1.30); Calcium 8.7 mg/dL (8.5-10.1); Calculated LDL 59 mg/dL (<100); Chloride 107 mmol/L (98-107); Cholesterol 103 mg/dL (<200); Estimated GFR 110.87 (mL/min/1.73m2); Glucose 83 mg/dL (74-106); HDL Cholesterol 31 mg/dL (>or=40); Sodium 142 mmol/L (136-145); Total Protein 6.8 g/dL (6.4-8.2); Triglyceride 69 mg/dL (<150)
[2024-09-04 23:07] LABS: PSA, Screening 0.8 ng/mL (<=3.5)
[2024-09-07 16:37] LABS: Testosterone, Total 899 ng/dL (240-950)
== END 2024-09-04 15:03 | disposition home or self-care (01) ==
LOC: NCHCN 15:02
PROVIDERS: PCP Physician Assistant; Visit Provider Physician Assistant
DX: I10 Essential (primary) hypertension (principal); E29.1 Testicular hypofunction; E78.5 Hyperlipidemia, unspecified; Z12.5 Encounter for screening for malignant neoplasm of prostate
CPT/HCPCS: 80053; 80061; 84153; 84403

== ENCOUNTER 2025-01-13 16:07 | Emergency (ER) | payer MEDICAID, SELFPAY ==
[2025-01-13] VITALS (11 sets, daily range): BP systolic 110–145; BP diastolic 45–88; PULSE 69–79; RESP 19–27; TEMP 36.4–36.5; O2SAT 92–98
--- NOTE | 2025-01-13 16:15 | RT.EKG_ITS ---
APPROVED REPORT Exam: Resting ECG Reason for Exam: chest pain Patient Location: E HR:70 bpm ECG Measurements Heart Rate 70 AXIS MD 195 P 66 QRSd 105 QRS 46 QT 385 T 44 QTc 414 Conclusion Sinus rhythm...normal P axis, V-rate 60- 99 Sinus rhythm, normal axis, normal intevals, non ischemic
--- NOTE | 2025-01-13 16:15 | DI.CT_ITS ---
Exam(s) CT ABDOMEN PELVIS W EXAM: CT ABDOMEN PELVIS W CLINICAL HISTORY: epigastric abdominal pain nausea. TECHNIQUE: Imaging Protocol: Axial computed tomography images with coronal and sagittal reformatted images were created and reviewed CONTRAST MATERIAL: Intravenous: Omnipaque-350 100cc Oral: None COMPARISON: No exams were available for comparison FINDINGS: VISUALIZED LUNG BASES: No nodules nor pleural effusions evident. ABDOMEN: GI: There is no ascites. The stomach contains fluid and food material. All the small bowel loops are fluid-filled and upper normal diameters averaging 2.4 cm. The colon is not collapsed. The large bowel contains fluid. Findings are consistent with probable gastroenteritis. LIVER: There are no focal hepatic lesions. No dilated intrahepatic ducts. GALLBLADDER/BILIARY: No obvious gallbladder pathology. CBD is not dilated. PANCREAS: No evidence of pancreatic mass nor dilatation of the pancreatic duct. SPLEEN: Spleen is not enlarged. No obvious intrasplenic lesions. Splenic and portal veins are patent. ADRENALS: There are no significant adrenal masses. KIDNEYS:There is a benign 1 cm cyst in the posterior cortex of the right kidney another slightly larger benign cysts noted in the posterior inferior cortex of the right kidney. These benign findings do not require further imaging workup. There are no other focal findings in the kidneys. No calculi. No hydronephrosis. No solid renal masses.. ABDOMINAL AORTA: Abdominal aorta is not enlarged. LYMPH NODES:There is no retroperitoneal nor paraaortic adenopathy. ABDOMINAL WALL: No evidence of significant anterior abdominal wall nor inguinal hernia. PELVIS: GI: The appendix is not seen is a separate structure. Probably surgically absent. No evidence of obvious appendicitis..There is no significant sigmoid diverticular disease. LYMPH NODES: There is no intrapelvic nor inguinal adenopathy. REPRODUCTIVE: Prostate size normal. Seminal vesicles unremarkable. URINARY BLADDER: No calculi nor obvious masses evident. The pelvic ureters are not dilated. OSSEOUS: No fractures and no significant osseous lesions. IMPRESSION: 1. There are fluid-filled upper normal diameter small bowel loops and there is also fluid in the non collapsed colon. Findings are consistent with gastroenteritis. 2. The appendix appears to be surgically absent Report called by myself to ER physician on 01/13/2025 at 5:40 p.m. RADIATION DOSE DELIVERED: 1,013.44mGy.cm Total DLP DATA REPOSITORY: All CT scans at this facility are submitted to the National Radiology Data Registry (NRDR) Dose Index Registry (DIR) with the [employer] ([employer]). RADIATION OPTIMIZATION: All CT scans at this facility use at least one of these dose optimization techniques: automated exposure control; mA and/or kV adjustment per patient size (includes targeted exams where dose is matched to clinical indication); or iterative reconstruction.
--- NOTE | 2025-01-13 16:21 | DI.RAD_ITS ---
Exam(s) XR CHEST 1V IN DI DEPT EXAM: XR CHEST 1V IN DI DEPT CLINICAL HISTORY: epigastric pain. TECHNIQUE: 2D digital imaging was performed. COMPARISON: CR,XR XR CHEST 2V PA LATERAL from 04/19/2024 FINDINGS: Single AP portable view. Heart size is upper normal. The mediastinum is not widened. Lungs are clear. No infiltrates nor obvious pleural effusions. IMPRESSION: No acute pulmonary findings on this single AP portable view of the chest. DATA REPOSITORY: RADIATION DOSE DELIVERED:
--- NOTE | 2025-01-13 16:24 | W.ED.GENAD ---
Discharge Plan Disposition Patient Disposition: Home Condition: Improving Discharge Details Clinical Impression: Gastroenteritis Primary Care Provider: Silvano Bolivar ED Provider: Nehemiah Mcneal Home Meds and New Rx's Prescriptions: No Action sertraline 150 mg capsule 150 mg PO DAILY testosterone cypionate [Depo-Testosterone] 200 mg/mL oil 200 mg IM Q2W clonazepam 0.5 mg tablet 0.5 mg PO DAILY PRN tadalafil [Cialis] 20 mg tablet 20 mg PO DAILY PRN Rx Instructions: administer approximately 30min before sexual activity; do not use more than 1 dose per 24hrs atorvastatin [Lipitor] 40 mg Tablet 40 mg PO HS amlodipine 5 mg Tablet 5 mg PO DAILY Discharge Instructions Instructions: Viral gastroenteritis in adults Additional Instructions: Please ensure to stay hydrated. Please return to the emergency department with any worsening symptoms. HPI General Date/Time Provider Initiated Documentation: 01/13/25 16:21. HPI Narrative: 54-year-old male history of remote appendectomy presents with epigastric/upper abdominal discomfort over the last several hours cramping in nature intermittent, associate with nausea no vomiting, had some loose stool before arrival, denies chest pain or back pain, denies shortness of breath. No recent travel. No sick contacts at home Related Data Home Medications ?Medication ?Instructions ?Recorded ?Confirmed amlodipine 5 mg tablet 5 mg PO DAILY 04/10/22 01/13/25 atorvastatin 40 mg tablet (Lipitor) 40 mg PO HS 04/10/22 01/13/25 clonazepam 0.5 mg tablet 0.5 mg PO DAILY PRN 01/28/23 01/13/25 sertraline 150 mg capsule 150 mg PO DAILY 01/28/23 01/13/25 tadalafil 20 mg tablet (Cialis) 20 mg PO DAILY PRN 01/28/23 01/13/25 testosterone cypionate 200 mg/mL 200 mg IM Q2W 01/28/23 01/13/25 intramuscular oil (Depo-Testosterone) Allergies Allergy/AdvReac Type Severity Reaction Status Date / Time Penicillins Allergy Unknown Unknown Verified 01/13/25 16:11 Sulfa (Sulfonamide Allergy Unknown Unknown Verified 01/13/25 16:11 Antibiotics) General Stated Complaint: Abd Prob HAL: 3 Exam Narrative Exam Narrative: General: alert, appears uncomfortable HEENT: normocephalic, atraumatic, neck supple, pupils equal round reactive to light, moist mucous membranes, tolerating secretions, normal voice, no rhinorrhea or otorrhea Respiratory: normal respiratory effort, lungs clear bilaterally, no wheezes rales or rhonchi Cardiac: regular rate and rhythm, no murmurs rubs or gallops; equal pulses bilaterally, warm well perfused, strong equal pulses bilateral extremities Abdominal: soft, nontender, nondistended; no organomegaly or palpable masses MSK: normal range of motion of extremities, warm, well perfused Skin: warm, dry, no rashes or lesions Neuro: AAOx3, CN II-XII intact, 5/5 strength bilateral upper and lower extremities, normal speech, no ataxia Psych: normal mood, normal affect, calm, cooperative Course Vital Signs Vital signs: Vital Signs Temperature 36.5 C 01/13/25 16:08 Pulse 77 01/13/25 16:08 Blood Pressure 142/88 H 01/13/25 16:08 Pulse Oximetry 98 01/13/25 16:08 Temperature 36.5 C 01/13/25 16:11 Pulse 77 01/13/25 16:11 Blood Pressure 142/88 H 01/13/25 16:11 Pulse Oximetry 98 01/13/25 16:11 Medical Decision Making 54-year-old male presents with epigastric and upper abdominal discomfort cramping in nature intermittent over the last several hours associate with nausea no vomiting, and some loose stool, no chest pain or shortness of breath, denies cardiac history or thromboembolic disease, patient has remote history of appendectomy, subjective tenderness in the epigastrium without guarding or rebounding, consider biliary colic versus early cholecystitis versus pancreatitis versus gastritis versus enteritis versus enterocolitis lower special for diverticulitis bowel perforation or obstruction lower suspicion for aortic pathology given history and physical examination lower sufficient for ACS PE or thoracic process lower suspicion for nephrolithiasis. Will obtain basic labs troponin chest x-ray CT abdomen pelvis urinalysis lipase will provide fluids analgesia antiemetics close reassessment of symptoms for disposition 18: 49 patient resting comfortably feeling much better after fluids and antiemetics. History physical labs and imaging consistent with gastroenteritis resolving. Hemodynamically stable no acute distress. Patient comfortable going home home care instructions and return precautions given family coming to pick him up [facility] All Active Problems (Updated 01/13/25 @ 18:50 by Nehemiah Mcneal MD) Gastroenteritis (Acute) Tubular adenoma (Acute) Screen for colon cancer (Acute) Medical History (Updated 01/13/25 @ 18:50 by Nehemiah Mcneal MD) History of herniated intervertebral disc L5-w/ injections History of anal fissures and repair High cholesterol HTN (hypertension) Low testosterone in male Anxiety Surgical History (Updated 02/08/23 @ 14:52 by Mara Camacho) History of colonoscopy (~01/2023) S/P injection of intervertebral space for herniated disc Hx of tonsillectomy Hx of appendectomy Social History Smoking/Tobacco Use Status: Former Tobacco Use Quit Date: 06/14/97 Smoking risk assessment performed?: Yes Alcohol Intake: former Drug use: Never Substance use type: does not use Housing: house Do you feel safe at home: Yes Do you feel safe in your relationship?: Yes
[2025-01-13 16:31] LABS: Abs Immature Grans 0.09 10^3/uL (0.0-0.06); HGB 17.9 g/dL (13.5-17.5); Immature Grans % 0.4 %; MCH 29.2 pg (27.0-33.0); MCHC 35.5 % (32.0-36.0); MCV 82 fL (80-95); MPV 8.4 fL (8.0-11.0); Platelet Count 273 10^3/uL (130-400); RDW 12.6 % (11.8-14.1); RDW-SD 37.9 fL; WBC 20.01 10^3/uL (4.4-10.8)
[2025-01-13] MEDS: Normal Saline 1,000 ML 1000 ML IV (16:36)
[2025-01-13] MEDS: MORPHine 4 MG/ML SYR 2 MG IVP (16:37)
[2025-01-13] MEDS: Ondansetron 4 MG/2 ML VIAL IVP (16:38)
[2025-01-13] MEDS: Famotidine 20 MG/2 ML VIAL IVP (16:38)
[2025-01-13 16:44] LABS: INR 1.1 (0.9-1.1); PTT Activated 35.4 sec (20.6-30.2); Prothrombin Time 10.8 sec (9.1-11.1)
[2025-01-13 16:49] LABS: ALT 33 U/L (16-63); AST 17 U/L (15-37); Albumin 4.7 g/dL (3.4-5.0); Alkaline Phosphatase 108 U/L (46-116); Anion Gap 12.5 mmol/L (3-11); BUN 14 mg/dL (7-18); Bilirubin, Total 1.2 mg/dL (0.2-1.0); CO2 26.5 mmol/L (21.0-32.0); Calcium 9.4 mg/dL (8.5-10.1); Chloride 101 mmol/L (98-107); Estimated GFR 102.12 (mL/min/1.73m2); Glucose 108 mg/dL (74-106); HCT 50.4 % (40.0-50.0); Lipase 24 U/L (<78); Potassium 3.3 mmol/L (3.5-5.1); Sodium 140 mmol/L (136-145); Total Protein 8.1 g/dL (6.4-8.2); Troponin I 5 ng/L (<or=76)
[2025-01-13 16:50] LABS: RBC 6.12 10^6/uL (4.36-5.78); RBC Morphology Normal
[2025-01-13] MEDS: Normal Saline - Diluent 50 ML VIAL IJ (16:55)
[2025-01-13] MEDS: Omnipaque 350 MG/ML 100 ML BTL IJ (16:57)
[2025-01-13 17:40] LABS: Glucose Negative (Negative)
[2025-01-13 17:49] LABS: C & S Indicated? No; RBC 0-2 HPF (0-2); WBC Negative HPF (0-5)
[2025-01-13 17:59] LABS: Troponin I 5 ng/L (<or=76)
[2025-01-13] MEDS: Ondansetron O.D.T. 4 MG TABEF, 3 TABS/BTL PO (18:58)
== END 2025-01-13 19:05 | disposition home or self-care (01) ==
PROVIDERS: Emergency Provider Emergency Medicine; PCP Physician Assistant
DX: K52.9 Noninfective gastroenteritis and colitis, unspecified (principal); I10 Essential (primary) hypertension; E78.5 Hyperlipidemia, unspecified; Z90.49 Acquired absence of other specified parts of digestive tract; Z87.891 Personal history of nicotine dependence
CPT/HCPCS: 80053; 83690; 93005; 96361; 96374; 96375; 99285; 71045; 74177; 81003; 81015; 84484; 85025; 85610; 85730; 93010; J2270; J2405; J3490

== ENCOUNTER 2025-04-23 15:26 | Outpatient (REF) | payer BC, SELFPAY | END 2025-04-23 15:27 | disposition home or self-care (01) | LOC: NCHCN 15:26 | PROVIDERS: PCP Physician Assistant; Visit Provider Physician Assistant | DX: E29.1 Testicular hypofunction (principal) | CPT/HCPCS: 84403 ==